=== PATIENT | male | born 1950 | race Two or more races ===

== ENCOUNTER 2022-05-01 06:20 | Day surgery (SDC) | payer OTHER ==
[~2022-05-01] VITALS: Ht 170.2 cm; Wt 48.5 kg
[~2022-05-01 06:20] MED LIST: ALTACE10 MG PO
== END 2022-05-01 15:25 | disposition home or self-care (01) ==
LOC: CIR.AMB 06:20
PROVIDERS: ATTEND Colon & Rectal Surgery
DX: K64.8 Other hemorrhoids (principal); Z20.822 Contact with and (suspected) exposure to COVID-19; I10 Essential (primary) hypertension